=== PATIENT | male | born 1950 | race Caucasian/White ===

== ENCOUNTER 2020-06-03 14:25 | Outpatient (CLI) | payer MEDICARE ==
--- NOTE | 2020-06-03 16:25 | RAD ---
LUMBAR SPINE TWO VIEWS: 06/03/20 INDICATION: Low back pain. COMPARISON: None. FINDINGS: Grade I anterolisthesis of L4 on L5. There is advanced facet arthrosis at L5-S1 and L4-5. There is mo derate facet arthrosis at L3-4. There are vascular calcifications involving the abdominopelvic vascul ature. No acute fracture or subluxation is evident. IMPRESSION: Moderate lumbar spondylosis. Grade I anterolisthesis of L4 on L5. POS: [facility]
== END 2020-06-03 14:26 | disposition home or self-care (01) ==
LOC: BICRAD 14:25
PROVIDERS: ATTEND Specialist
DX: M54.5 Low back pain (principal); M47.816 Spondylosis without myelopathy or radiculopathy, lumbar region; M43.16 Spondylolisthesis, lumbar region
CPT/HCPCS: 72100

== ENCOUNTER 2020-06-23 10:15 | Outpatient (CLI) | payer MEDICARE ==
--- NOTE | 2020-06-23 11:52 | MRI ---
MRI Lumbar Spine Noncontrast: HISTORY: Back pain and bilateral buttock pain. COMPARISON: None FINDINGS: There is a circumscribed increased T2-weighted signal intensity lesion measuring 1 cm in the midporti on left kidney likely due to small cyst. There is increased signal intensity seen within the paraspinous musculature on the sagittal STIR imag es at the L5-S1 level suggesting muscular edema/strain. Conus medullaris is normal in morphology and terminates at the L1 level. L1-2: There is no disc bulge or disc herniation. Central spinal canal and neural foramina are patent. L2-3: No disc bulge disc herniation is present. Mild facet degenerative changes are present with slig ht mass effect on the right posterior lateral aspect of thecal sac without significant central canal or neural foraminal narrowing. L3-4: Minimal disc osteophyte complex and facet hypertrophic changes. No significant central canal or neural foraminal narrowing is present. L4-5: Severe bilateral facet hypertrophic changes and ligamentous thickening. Broad-based disc osteop hyte complex is present. There is grade 1 anterolisthesis of L4 on L5 measuring approximately 4 mm. There is severe central canal narrowing with narrowing of the lateral recesses at this level. Mild bi lateral neural foraminal narrowing is present. There is a tiny subcentimeter focus of increased T2-weighted signal intensity seen posterior and medial to the right-sided facet joint which may repre sent a tiny synovial cyst measuring 4 mm. L5-S1: Slight retrolisthesis of L5 on S1. Broad-based disc osteophyte complex is present. Moderate fa cet hypertrophic changes are noted. Central spinal canal is patent. Mild bilateral neural foraminal narrowing is present. IMPRESSION: 1. Edema within the paraspinous musculature at the L5-S1 level bilaterally which could be related to muscular strain. Follow-up MRI pelvis may be helpful to ensure resolution of edema and presumed strain involving the paraspinous musculature in this region 2. Degenerative changes in the lower lumbar spine greatest at the L4-5 level where there are severe f acet hypertrophic changes and grade 1 anterolisthesis with severe central canal narrowing as well as prominent narrowing of the lateral recesses. Mild bilateral neural foraminal narrowing is present.
== END 2020-06-23 10:16 | disposition home or self-care (01) ==
LOC: TBSIIMAG 10:15
PROVIDERS: ATTEND Specialist
DX: M54.5 Low back pain (principal); M47.816 Spondylosis without myelopathy or radiculopathy, lumbar region; M43.16 Spondylolisthesis, lumbar region; M48.061 Spinal stenosis, lumbar region without neurogenic claudication
CPT/HCPCS: 72148

== ENCOUNTER 2021-08-10 09:34 | Outpatient (CLI) | payer MEDICARE | END 2021-08-10 09:35 | disposition home or self-care (01) | LOC: BICRAD 09:34 | PROVIDERS: ATTEND Specialist | DX: J45.909 Unspecified asthma, uncomplicated (principal) | CPT/HCPCS: 71046 ==

== ENCOUNTER 2021-12-07 12:47 | Outpatient (CLI) | payer MEDICARE | END 2021-12-07 12:48 | disposition home or self-care (01) | LOC: MRI 12:47 | PROVIDERS: ATTEND Specialist | DX: M25.512 Pain in left shoulder (principal); M75.122 Complete rotator cuff tear or rupture of left shoulder, not specified as traumatic ==

== ENCOUNTER 2023-06-24 18:56 | Emergency (ER) | payer BC, MEDICARE, OTHER ==
[2023-06-24] MEDS ORDERED: Ketorolac Tromethamine 30 MG/ML VIAL ONE (20:33)
== END 2023-06-24 22:46 | disposition home or self-care (01) ==
LOC: ERS 18:56
DX: S70.02XA Contusion of left hip, initial encounter (principal); F17.220 Nicotine dependence, chewing tobacco, uncomplicated; E11.9 Type 2 diabetes mellitus without complications; Y04.8XXA Assault by other bodily force, initial encounter
CPT/HCPCS: 72192; 96372; J1885